=== PATIENT | male | born 1965 | race Caucasian/White ===

== ENCOUNTER 2019-04-18 18:11 | Emergency (ER) | payer MEDICAID ==
[2019-04-18] MEDS ORDERED: Sodium Chloride 0.9% 1,000 ML IV ONE ×2 (18:29→18:30)
--- NOTE | 2019-04-18 18:33 | EDM.PDOC ---
<Girish Singh - Last Filed: 04/18/19 18:37> ED HPI GENERAL MEDICAL PROBLEM - General Chief Complaint: Diabetic Complaint Stated Complaint: LOW BLOOD SUGAR Time Seen by Provider: 04/18/19 18:31 Source of Information: Reports: Patient - History of Present Illness INITIAL COMMENTS - FREE TEXT/NARRATIVE: HISTORY AND PHYSICAL: History of present illness: [Patient is visiting town from out of state he has stopped his glucometer to her or has forgotten his glucometer stating he had a slight episode of dizziness today and thought his blood sugar might below Presents by private vehicle in no acute distress alert interactive no fever nausea vomiting diarrhea constipation chest pain shortness breath headache dizziness or palpitation no bowel or urine symptoms at current ] Review of systems: As per history of present illness and below otherwise all systems reviewed and negative. Past medical history: As per history of present illness and as reviewed below otherwise noncontributory. Surgical history: As per history of present illness and as reviewed below otherwise noncontributory. Social history: No reported history of drug or alcohol abuse. Family history: As per history of present illness and as reviewed below otherwise noncontributory. Physical exam: HEENT: Atraumatic, normocephalic, pupils reactive, negative for conjunctival pallor or scleral icterus, mucous membranes moist, throat clear, neck supple, nontender, trachea midline. Lungs: Clear to auscultation, breath sounds equal bilaterally, chest nontender. Heart: S1S2, regular, negative for clicks, rubs, or JVD. Abdomen: Soft, nondistended, nontender. Negative for masses or hepatosplenomegaly. Negative for costovertebral tenderness. Pelvis: Stable nontender. Genitourinary: Deferred. Rectal: Deferred. Extremities: Atraumatic, negative for cords or calf pain. Neurovascular unremarkable. Neuro: Awake, alert, oriented. Cranial nerves II through XII unremarkable. Cerebellum unremarkable. Motor and sensory unremarkable throughout. Exam nonfocal. Diagnostics: [CBC CMP troponin UA EKG Chest 1 view] Therapeutics: [Normal saline Insulin 10 units ] IV, 10 units subcutaneous patients signed out at shift change to Dr. Sanchez for continued treatment following labs and disposition Impression: [de hydration Hyperglycemia Noncompliance Chronic history at baseline ] Definitive disposition and diagnosis as appropriate pending reevaluation and review of above. - Related Data Allergies Allergy/AdvReac Type Severity Reaction Status Date / Time No Known Allergies Allergy Verified 04/18/19 18:17 Home Meds: Home Meds Insulin Glarg,Human.Rec.Analog [Lantus] 20 units SUBCNJ DAILY 04/18/19 [History] oxyCODONE ER [OxyCONTIN] 20 mg PO ASDIRECTED 04/18/19 [History] Past Medical History Endocrine/Metabolic History: Reports: Diabetes, Type II - Infectious Disease History Infectious Disease History: Reports: Chicken Pox - Past Surgical History Musculoskeletal Surgical History: Reports: Hip Replacement, Knee Replacement, Other (See Below) Other Musculoskeletal Surgeries/Procedures:: left shoulder surgery. left leg surgery Social & Family History - Family History Family Medical History: Noncontributory - Tobacco Use Smoking Status *Q: Current Every Day Smoker Years of Tobacco use: 22 Packs/Tins Daily: 1 - Caffeine Use Caffeine Use: Reports: Soda - Recreational Drug Use Recreational Drug Use: No Course - Vital Signs Last Recorded V/S: Last Vital Signs Temp 36.9 C 04/18/19 19:14 Pulse 94 04/18/19 19:14 Resp 18 04/18/19 19:14 BP 108/71 04/18/19 19:14 Pulse Ox 96 04/18/19 19:14 - Orders/Labs/Meds Orders: Active Orders 24 hr Category Date Time Status EKG Documentation Completion [RC] STAT Care 04/18/19 18:31 Active Labs: Laboratory Tests 04/18/19 04/18/19 04/18/19 Range/Units 18:25 18:38 18:38 WBC 9.61 (4.0-11.0) K/uL RBC 5.27 (4.50-5.90) M/uL Hgb 16.6 (13.0-17.0) g/dL Hct 47.5 (38.0-50.0) % MCV 90.1 (80.0-98.0) fL MCH 31.5 (27.0-32.0) pg MCHC 34.9 (31.0-37.0) g/dL RDW Std Deviation 41.5 (28.0-62.0) fl RDW Coeff of Cony 13 (11.0-15.0) % Plt Count 231 (150-400) K/uL MPV 10.00 (7.40-12.00) fL Neut % (Auto) 58.5 (48.0-80.0) % Lymph % (Auto) 35.1 (16.0-40.0) % Bay % (Auto) 5.1 (0.0-15.0) % Eos % (Auto) 1.1 (0.0-7.0) % Baso % (Auto) 0.2 (0.0-1.5) % Neut # (Auto) 5.6 (1.4-5.7) K/uL Lymph # (Auto) 3.4 H (0.6-2.4) K/uL Bay # (Auto) 0.5 (0.0-0.8) K/uL Eos # (Auto) 0.1 (0.0-0.7) K/uL Baso # (Auto) 0.0 (0.0-0.1) K/uL Nucleated RBC % 0.0 /100WBC Nucleated RBCs # 0 K/uL Sodium 130 L (136-148) mmol/L Potassium 4.7 (3.5-5.1) mmol/L Chloride 97 L (98-107) mmol/L Carbon Dioxide 24.4 (21.0-32.0) mmol/L BUN 27 H (7.0-18.0) mg/dL Creatinine 1.5 H (0.8-1.3) mg/dL Est Cr Clr Drug Dosing 65.10 mL/min Estimated GFR (MDRD) 49.1 ml/min Glucose 680 H* (74-106) mg/dL POC Glucose > 500 H (60-110) mg/dL Hemoglobin A1c (4.5-6.2) % Calcium 9.3 (8.5-10.1) mg/dL Total Bilirubin 0.3 (0.2-1.0) mg/dL AST 30 (15-37) IU/L ALT 33 (14-63) IU/L Alkaline Phosphatase 157 H (46-116) U/L Troponin I < 0.050 (0.000-0.056) ng/mL Total Protein 7.5 (6.4-8.2) g/dL Albumin 3.4 (3.4-5.0) g/dL Globulin 4.1 H (2.6-4.0) g/dL Albumin/Globulin Ratio 0.8 L (0.9-1.6) Urine Color Urine Appearance Urine pH (5.0-8.0) Ur Specific [place] (1.001-1.035) Urine Protein (NEGATIVE) mg/dL Urine Glucose (UA) (NEGATIVE) mg/dL Urine Ketones (NEGATIVE) mg/dL Urine Occult Blood (NEGATIVE) Urine Nitrite (NEGATIVE) Urine Bilirubin (NEGATIVE) Urine Urobilinogen (<2.0) EU/dL Ur Leukocyte Esterase (NEGATIVE) Ethyl Alcohol mg/dL 04/18/19 04/18/19 04/18/19 Range/Units 18:38 18:38 19:00 WBC (4.0-11.0) K/uL RBC (4.50-5.90) M/uL Hgb (13.0-17.0) g/dL Hct (38.0-50.0) % MCV (80.0-98.0) fL MCH (27.0-32.0) pg MCHC (31.0-37.0) g/dL RDW Std Deviation (28.0-62.0) fl RDW Coeff of Cony (11.0-15.0) % Plt Count (150-400) K/uL MPV (7.40-12.00) fL Neut % (Auto) (48.0-80.0) % Lymph % (Auto) (16.0-40.0) % Bay % (Auto) (0.0-15.0) % Eos % (Auto) (0.0-7.0) % Baso % (Auto) (0.0-1.5) % Neut # (Auto) (1.4-5.7) K/uL Lymph # (Auto) (0.6-2.4) K/uL Bay # (Auto) (0.0-0.8) K/uL Eos # (Auto) (0.0-0.7) K/uL Baso # (Auto) (0.0-0.1) K/uL Nucleated RBC % /100WBC Nucleated RBCs # K/uL Sodium (136-148) mmol/L Potassium (3.5-5.1) mmol/L Chloride (98-107) mmol/L Carbon Dioxide (21.0-32.0) mmol/L BUN (7.0-18.0) mg/dL Creatinine (0.8-1.3) mg/dL Est Cr Clr Drug Dosing mL/min Estimated GFR (MDRD) ml/min Glucose (74-106) mg/dL POC Glucose (60-110) mg/dL Hemoglobin A1c 10.6 H (4.5-6.2) % Calcium (8.5-10.1) mg/dL Total Bilirubin (0.2-1.0) mg/dL AST (15-37) IU/L ALT (14-63) IU/L Alkaline Phosphatase (46-116) U/L Troponin I (0.000-0.056) ng/mL Total Protein (6.4-8.2) g/dL Albumin (3.4-5.0) g/dL Globulin (2.6-4.0) g/dL Albumin/Globulin Ratio (0.9-1.6) Urine Color YELLOW Urine Appearance CLEAR Urine pH 5.0 (5.0-8.0) Ur Specific [place] 1.010 (1.001-1.035) Urine Protein NEGATIVE (NEGATIVE) mg/dL Urine Glucose (UA) >=1000 (NEGATIVE) mg/dL Urine Ketones NEGATIVE (NEGATIVE) mg/dL Urine Occult Blood NEGATIVE (NEGATIVE) Urine Nitrite NEGATIVE (NEGATIVE) Urine Bilirubin NEGATIVE (NEGATIVE) Urine Urobilinogen 0.2 (<2.0) EU/dL Ur Leukocyte Esterase NEGATIVE (NEGATIVE) Ethyl Alcohol 3 mg/dL Meds: Medications Discontinued Medications Generic Name Dose Route Start Last Admin Trade Name Freq PRN Reason Stop Dose Admin Sodium Chloride 1,000 mls @ 999 mls/hr 04/18/19 18:29 04/18/19 18:55 Normal Saline IV 04/18/19 19:29 999 mls/hr STAT ONE Administration Sodium Chloride 1,000 mls @ 999 mls/hr 04/18/19 18:30 04/18/19 19:44 Normal Saline IV 04/18/19 19:30 999 mls/hr STAT ONE Administration Insulin Human Regular 10 unit 04/19/19 07:30 Novolin R SUBCUT BIDAC JONATHAN Protocol Insulin Human Regular 10 unit 04/18/19 18:44 04/18/19 18:56 Novolin R SUBCUT 04/18/19 18:45 10 units NOW STA Administration Protocol Insulin Human Regular 10 unit 04/18/19 18:44 04/18/19 18:59 Novolin R IVPUSH 04/18/19 18:45 10 unit NOW STA Administration Protocol Departure - Departure Disposition: Home, Self-Care 01 Clinical Impression: Hyperglycemia, Patient noncompliance - Discharge Information Referrals: PCP,None [Primary Care Provider] - Forms: ED Department Discharge Additional Instructions: The following information is given to patients seen in the emergency department who are being discharged to home. This information is to outline your options for follow-up care. We provide all patients seen in our emergency department with a follow-up referral. The need for follow-up, as well as the timing and circumstances, are variable depending upon the specifics of your emergency department visit. If you don't have a primary care physician on staff, we will provide you with a referral. We always advise you to contact your personal physician following an emergency department visit to inform them of the circumstance of the visit and for follow-up with them and/or the need for any referrals to a consulting specialist. The emergency department will also refer you to a specialist when appropriate. This referral assures that you have the opportunity for followup care with a specialist. All of these measure are taken in an effort to provide you with optimal care, which includes your followup. Under all circumstances we always encourage you to contact your private physician who remains a resource for coordinating your care. When calling for followup care, please make the office aware that this follow-up is from your recent emergency room visit. If for any reason you are refused follow-up, please contact the [facility] emergency department at and ask to speak to the emergency department charge nurse. [facility] Primary care- Internal Medicine and Family [address] [address] When you get home to [place] please connect with a provider there for reevaluation on your medications and diabetic care. He will need further insulin management in light of your lab values today as we discussed. Push hydration and avoid sweets and watch your diet. Return to ER as needed and as discussed and if you opt to not leave in the morning and stay in the area please connect with one of our clinic provider is using resources given to above <Irina Fountain - Last Filed: 04/18/19 20:19> ED HPI GENERAL MEDICAL PROBLEM - History of Present Illness INITIAL COMMENTS - FREE TEXT/NARRATIVE: This is Dr. Fountain dictating addendum note as I assumed care of this case at 7 PM. I have added some lab tests including an alcohol level and a hemoglobin A1c. The patient says that he has not only not had his glucometer and strips but he has not had insulin, his usual dosing being Lantus 20 units subcutaneous a day, for the last 6 months. He is planning on leaving at 6:00 in the morning to go back to [place] where he is currently living and he has no intention of being admitted to the hospital. His hemoglobin A1c is 10.6 which is the highest it has been for him but is an angled gap is 9 with a serum glucose of 680. He has received his insulin as ordered by Dr. Dick and he is on a second liter of fluids. We will repeat his Accu-Chek and I will discuss this case for discharge management with Dr. Li as the patient is not intending on being admitted. 1950: Case was discussed with Dr. Li and both he and I feel somewhat concerned about giving him any long acting insulin knowing that he has no ability to check his blood glucose and he is leaving on a plane at 6 AM. It is unclear to me and speaking with him whether he has a regular provider back in [place] or he will need to get connected before he can get back on his meds. We have opted to just manage him here symptomatically with fluids and sliding scale insulin and offer him further care and evaluation and if he does not want to continue with that management that he can make that decision going forward pending his repeat blood glucose. 2017: Patient is getting anxious and wants to leave the emergency department. He has finished a second liter of IV fluids and his repeat Accu-Chek is 4:30. I' ve advised him to follow-up when he gets to [place] and watch his diet. ED ROS GENERAL - Review of Systems Review Of Systems: ROS reveals no pertinent complaints other than HPI. ED EXAM GENERAL NO PERIP PULSE - Physical Exam Exam: See Below (See dictation) Departure - Departure Time of Disposition: 20:17 Condition: Good
[2019-04-18] MEDS ORDERED: Insulin Regular, Human 100 Units/ML 10 ML Vial IVPUSH STA (18:44)
[2019-04-18] MEDS ORDERED: Insulin Regular, Human 100 Units/ML 10 ML Vial SUBCUT STA (18:44)
--- NOTE | 2019-04-18 19:20 | CR ---
INDICATION: Chest pain and shortness of breath TECHNIQUE: Chest 1 view COMPARISON: None FINDINGS: Cardiovascular and mediastinum: Heart size and vasculature are normal in caliber and appearance. Lungs and pleural spaces: Lungs are clear. No sign of infiltrate or mass. No sign of pleural effusion. No pneumothorax. Bones and soft tissues: Chronic fracture deformity is in the left clavicle. Otherwise unremarkable. IMPRESSION: No acute or significant findings. Dictated by Eros Lopez MD @ Apr 18 2019 7:18PM Signed by Dr. Eros Lopez @ Apr 18 2019 7:19PM
[2019-04-18 19:24] LABS: CHLORIDE,CL 97 mmol/L (98-107); SODIUM,NA 130 mmol/L (136-148)
[2019-04-18 19:33] LABS: HEMOGLOBIN A1C 10.6 % (4.5-6.2)
[2019-04-19] MEDS ORDERED: Insulin Regular, Human 100 Units/ML 10 ML Vial SUBCUT SCH (07:30)
== END 2019-04-18 20:24 | disposition home or self-care (01) ==
LOC: MW.ED 18:11
DX: E11.65 Type 2 diabetes mellitus with hyperglycemia (principal); E86.0 Dehydration; Z91.14 Patient's other noncompliance with medication regimen; F17.210 Nicotine dependence, cigarettes, uncomplicated
CPT/HCPCS: 36415; 71045; 80053; 81003; 82962; 83036; 84484; 85025; 93005; 96360; 96361; 99284; G0480; J7040; J1815-GY